=== PATIENT | female | born 1970 | race Caucasian/White ===

== ENCOUNTER 2018-07-22 11:00 | Emergency (ER) | payer MEDICAID ==
[~2018-07-22] VITALS: Ht 162.6 cm; Wt 70.3 kg
[2018-07-22 11:04] VITALS: Ht 162.6 cm; Wt 70.3 kg
[2018-07-22 12:55] VITALS: BP 115/77
== END 2018-07-22 12:55 | disposition home or self-care (01) ==
LOC: ED 11:00
DX: J06.9 Acute upper respiratory infection, unspecified (principal)
CPT/HCPCS: Q0092

== ENCOUNTER 2019-10-20 09:45 | Emergency (ER) | payer MEDICAID ==
[~2019-10-20] VITALS: Ht 160 cm; Wt 73.5 kg
[2019-10-20 09:47] VITALS: BP 129/74; Ht 160 cm; Wt 73.5 kg
== END 2019-10-20 11:00 | disposition home or self-care (01) ==
LOC: ED 09:45
DX: B34.9 Viral infection, unspecified (principal); R51 Headache